=== PATIENT | female | born 1960 | race Caucasian/White ===

== ENCOUNTER → 2024-07-25 13:52 | Outpatient (REF) | payer MEDICARE, SELFPAY | LOC: RAD 13:52 | PROVIDERS: ATTENDING PHYSICIAN Nurse Practitioner Adult Health | DX: N93.9 Abnormal uterine and vaginal bleeding, unspecified (principal); N95.0 Postmenopausal bleeding; R10.2 Pelvic and perineal pain | CPT/HCPCS: 76856 ==